=== PATIENT | male | born 1930 | race Caucasian/White ===

== ENCOUNTER 2018-01-02 08:47 | Emergency (ER) | payer OTHER ==
[2018-01-02 09:41] LABS: Urine Blood TRACE (NEG); Urine Glucose NEGATIVE (NEG); Urine Protein NEGATIVE (NEG); Urine Specific Gravity 1.025 (1.005-1.030); Urine pH 6.5 (5.0-7.0)
[2018-01-02 10:24] LABS: Urine RBC <5 /HPF (NONE SEEN)
[2018-01-02 10:25] LABS: Urine Bacteria NONE SEEN /HPF (NONE SEEN); Urine Culture Reflex Order NOT NEEDED
[2018-01-02] MEDS ORDERED: NA CHLORIDE 0.9% 1,000 ML ONE (10:25)
[2018-01-02 10:26] LABS: Urine Mucus LIGHT /HPF (NONE SEEN)
[2018-01-02 10:34] LABS: Absolute Lymphocytes (CBC) 1.3 K/uL (0.7-4.9); Absolute Monocytes 0.6 K/uL (0.1-1.3); Basophils % 0.5 % (0-1.3); Eosinophils % 0.1 % (0-4.4); Hematocrit 44.9 % (39.6-49.0); Lymphocytes % 13.1 % (15.3-44.8); MCH 28.1 pg (27.0-35.0); MCV 86.4 fL (80-100); MPV 9.9 fL (7.6-11.3); Monocytes % 5.6 % (3.3-12.3)
[2018-01-02 10:46] LABS: Potassium 4.8 mEq/L (3.6-5.0)
--- NOTE | 2018-01-02 10:50 | ER ---
Nurse's Notes [facility] Name: Darvin Watson Age: 87 yrs Sex: Male : 1930 Arrival Date: 01/02/2018 Time: 08:48 Bed 13 Private MD: Diagnosis: Malaise and fatigue;Anorexia;Adjustment disorder with depressed mood Presentation: 01/02 09:05 Presenting complaint: Child states: "Hes nauseated every morning and he doesn't want to lk1 eat. He was in the hospital 4 days for it recently and they didn't find a problem. He lost his in Oct and just moved here, but this has been going on for years.". Transition of care: patient was not received from another setting of care. Onset of symptoms is unknown. Care prior to arrival: None. 09:05 Method Of Arrival: Ambulatory lk1 09:05 Acuity: VENTURA 3 lk1 Triage Assessment: 09:08 General: Appears in no apparent distress. Behavior is calm, cooperative, appropriate lk1 for age. Pain: Denies pain. GI: Reports nausea. Historical: - Allergies: 09:07 No Known Allergies; lk1 - Home Meds: 09:11 morphine 60 mg Oral TbER 1 tab every 8 hours for Chronic Pain [Active]; mirtazapine 15 lk1 mg Oral TbDL 1 tab once daily for Major Depressive Disorder [Active]; gabapentin 300 mg oral cap 1 cap four times a day for Neuropathic Pain [Active]; ondansetron HCl 4 mg Oral tab 1 tabs every 8 hours [Active]; omeprazole 20 mg Oral cpDR 2 caps 3 times per day [Active]; clopidogrel 75 mg oral tab 1 tab once daily [Active]; - PMHx: 09:07 holes in stomach; Chronic pain; High Cholesterol; Depression; lk1 - PSHx: 09:07 Knee surgery; shoulder surgery; back surgery multiple; CABG; lk1 - Immunization history:: Adult Immunizations up to date. - Social history:: Smoking status: Patient/guardian denies using tobacco. Screenin:26 Abuse screen: Denies threats or abuse. Denies injuries from another. Nutritional iw screening: No deficits noted. Tuberculosis screening: No symptoms or risk factors identified. Fall Risk IV access (20 points). Assessment: 09:15 General: Appears in no apparent distress. comfortable, slender, well groomed, Behavior ph is calm, cooperative, appropriate for age, Denies fever, feeling ill. Pain: Denies pain. Neuro: Level of Consciousness is awake, alert, obeys commands, Oriented to person, place, time, situation, Denies weakness dizziness. Cardiovascular: Denies chest pain, lightheadedness, shortness of breath, Capillary refill < 3 seconds Patient's skin is warm and dry. Respiratory: Airway is patent Respiratory effort is even, unlabored. GI: Reports nausea, Patient currently denies abdominal pain, diarrhea, vomiting, Parent/caregiver reports the patient having anorexia. Derm: Skin is intact, Skin is pink, warm \\T\\ dry. Musculoskeletal: Circulation, motion, and sensation intact. Range of motion: intact in all extremities. 10:30 Reassessment: Patient appears in no apparent distress at this time. Patient and/or ph family updated on plan of care and expected duration. Pain level reassessed. Patient is alert, oriented x 3, equal unlabored respirations, skin warm/dry/pink. Awaiting lab results, daughter at bedside. 11:26 Reassessment: Patient appears in no apparent distress at this time. Patient and/or iw family updated on plan of care and expected duration. Pain level reassessed. Patient is alert, oriented x 3, equal unlabored respirations, skin warm/dry/pink. Patient states feeling better. Patient states symptoms have improved. Vital Signs: 09:08 BP 120 / 88; Pulse 86; Resp 15; Temp 97.2(TE); Pulse Ox 98% on R/A; Height 5 ft. 11 in. lk1 (180.34 cm) (R); Pain 0/10; 10:30 BP 128 / 78; Pulse 76; Resp 18; Pulse Ox 98% on R/A; ph 11:26 BP 132 / 87; Pulse 74; Resp 16; Pulse Ox 100% on R/A; Pain 0/10; iw ED Course: 08:48 Patient arrived in ED. as 08:49 [facility]vina Colón [facility]C [facility] snw 08:49 Herb Cain MD is Attending Physician. snw 09:01 Gladis Suero, AMY is Primary Nurse. ph 09:06 Triage completed. lk1 09:08 Arm band placed on right wrist. lk1 11:26 Patient has correct armband on for positive identification. iw 11:26 No provider procedures requiring assistance completed. IV discontinued, intact, iw bleeding controlled, No redness/swelling at site. Pressure dressing applied. Administered Medications: 10:39 Drug: NS 0.9% 1000 ml Route: IV; Rate: 125 ml/hr; Site: right antecubital; ph 11:26 Follow up: IV Status: Order to discontinue infusion iw 11:26 Not Given (Patient Refused): Phenergan 6.25 mg IVP once iw Outcome: 10:49 Discharge ordered by . chuck 11:26 Discharged to home ambulatory, with family. iw 11:26 Condition: good 11:26 Discharge instructions given to patient, family, Instructed on discharge instructions, follow up and referral plans. medication usage, Demonstrated understanding of instructions, follow-up care, medications, Prescriptions given X 1. 11:28 Patient left the ED. iw Signatures: Melvina Colón, HOME DAY CARE PROVIDER-C HOME DAY CARE PROVIDER-CsnStacey Boo Irene, RN RN Gladis Suero RN RN Debbie Jovel, AMY RN lk1
--- NOTE | 2018-01-02 10:50 | EDPHYS ---
Physician Documentation [facility] Name: Darvin Watson Age: 87 yrs Sex: Male : 1930 Arrival Date: 01/02/2018 Time: 08:48 Bed 13 Private MD: ED Physician Herb Cain HPI: 01/02 09:10 This 87 yrs old Male presents to ER via Ambulatory with complaints of snw Decreased Appetite. 09:10 Onset: The symptoms/episode began/occurred the s/s have occurred over several years but snw worsened over the past months. Associated signs and symptoms: Pertinent positives: nausea. Modifying factors: The patient symptoms are alleviated by nothing. The patient has experienced similar episodes in the past, chronically. The patient has not recently seen a physician, recent admission in [place] x 4 days for similar s/s, negative workup per report.. Historical: - Allergies: 09:07 No Known Allergies; lk1 - Home Meds: 09:11 morphine 60 mg Oral TbER 1 tab every 8 hours for Chronic Pain [Active]; mirtazapine 15 lk1 mg Oral TbDL 1 tab once daily for Major Depressive Disorder [Active]; gabapentin 300 mg oral cap 1 cap four times a day for Neuropathic Pain [Active]; ondansetron HCl 4 mg Oral tab 1 tabs every 8 hours [Active]; omeprazole 20 mg Oral cpDR 2 caps 3 times per day [Active]; clopidogrel 75 mg oral tab 1 tab once daily [Active]; - PMHx: 09:07 holes in stomach; Chronic pain; High Cholesterol; Depression; lk1 - PSHx: 09:07 Knee surgery; shoulder surgery; back surgery multiple; CABG; lk1 - Immunization history:: Adult Immunizations up to date. - Social history:: Smoking status: Patient/guardian denies using tobacco. ROS: 09:08 Eyes: Negative for injury, pain, redness, and discharge, ENT: Negative for injury, snw pain, and discharge, Neck: Negative for injury, pain, and swelling, Cardiovascular: Negative for chest pain, palpitations, and edema, Respiratory: Negative for shortness of breath, cough, wheezing, and pleuritic chest pain. 09:08 Back: Negative for injury and pain, : Negative for injury, bleeding, discharge, and swelling, MS/Extremity: Negative for injury and deformity, Skin: Negative for injury, rash, and discoloration, Neuro: Negative for headache, weakness, numbness, tingling, and seizure. 09:08 Constitutional: Positive for malaise, poor PO intake, nausea. 09:08 Abdomen/GI: Positive for nausea, anorexia. 09:08 Psych: Positive for depression. Exam: 09:07 Constitutional: This is a well developed, well nourished patient who is awake, alert, snw and in no acute distress. Head/Face: Normocephalic, atraumatic. Eyes: Pupils equal round and reactive to light, extra-ocular motions intact. Lids and lashes normal. Conjunctiva and sclera are non-icteric and not injected. Cornea within normal limits. Periorbital areas with no swelling, redness, or edema. ENT: Nares patent. No nasal discharge, no septal abnormalities noted. Tympanic membranes are normal and external auditory canals are clear. Oropharynx with no redness, swelling, or masses, exudates, or evidence of obstruction, uvula midline. Mucous membranes moist. Neck: Trachea midline, no thyromegaly or masses palpated, and no cervical lymphadenopathy. Supple, full range of motion without nuchal rigidity, or vertebral point tenderness. No Meningismus. Chest/axilla: Normal chest wall appearance and motion. Nontender with no deformity. No lesions are appreciated. Cardiovascular: Regular rate and rhythm with a normal S1 and S2. No gallops, murmurs, or rubs. Normal PMI, no JVD. No pulse deficits. Respiratory: Lungs have equal breath sounds bilaterally, clear to auscultation and percussion. No rales, rhonchi or wheezes noted. No increased work of breathing, no retractions or nasal flaring. Abdomen/GI: Soft, non-tender, with normal bowel sounds. No distension or tympany. No guarding or rebound. No evidence of tenderness throughout. Back: No spinal tenderness. No costovertebral tenderness. Full range of motion. Skin: Warm, dry with normal turgor. Normal color with no rashes, no lesions, and no evidence of cellulitis. MS/ Extremity: Pulses equal, no cyanosis. Neurovascular intact. Full, normal range of motion. Neuro: Awake and alert, GCS 15, oriented to person, place, time, and situation. Cranial nerves II-XII grossly intact. Motor strength 5/5 in all extremities. Sensory grossly intact. Cerebellar exam normal. Normal gait. 09:07 Psych: Behavior/mood is depressed, Affect is calm, Oriented to person, place, time, Patient has no thoughts/intents to harm self or others. Spouse in Oct 2017, Pt's Daughter went and picked him up 2 weeks ago and moved him to [place] from [place].. Vital Signs: 09:08 BP 120 / 88; Pulse 86; Resp 15; Temp 97.2(TE); Pulse Ox 98% on R/A; Height 5 ft. 11 in. lk1 (180.34 cm) (R); Pain 0/10; 10:30 BP 128 / 78; Pulse 76; Resp 18; Pulse Ox 98% on R/A; ph 11:26 BP 132 / 87; Pulse 74; Resp 16; Pulse Ox 100% on R/A; Pain 0/10; iw MDM: 08:59 Patient medically screened. snw 10:50 Data reviewed: vital signs, nurses notes. Data interpreted: Pulse oximetry: on room air snw is 98 %. Interpretation: normal. Counseling: I had a detailed discussion with the patient and/or guardian regarding: the historical points, exam findings, and any diagnostic results supporting the discharge/admit diagnosis, the presence of at least one elevated blood pressure reading (>120/80) during this emergency department visit, lab results, the need for outpatient follow up, to return to the emergency department if symptoms worsen or persist or if there are any questions or concerns that arise at home. Special discussion: Based on the history and exam findings, there is no indication for further emergent testing or inpatient evaluation. I discussed with the patient/guardian the need to see the primary care provider for further evaluation of the symptoms. I discussed with the patient/guardian the need to see the psychiatrist for further evaluation of the symptoms. 01/02 08:53 Order name: Urine Culture snw 01/02 08:53 Order name: Urine Microscopic Only; Complete Time: 10:27 snw 01/02 09:18 Order name: CBC with Diff; Complete Time: 10:47 snw 01/02 09:18 Order name: Chem 7; Complete Time: 10:47 snw 01/02 09:18 Order name: Blood Culture* snw 01/02 09:25 Order name: Urine Dipstick--Ancillary (enter results); Complete Time: 09:43 jw5 01/02 08:53 Order name: Urine Dipstick-Ancillary (obtain specimen); Complete Time: 09:23 snw Administered Medications: 10:39 Drug: NS 0.9% 1000 ml Route: IV; Rate: 125 ml/hr; Site: right antecubital; ph 11:26 Follow up: IV Status: Order to discontinue infusion iw 11:26 Not Given (Patient Refused): Phenergan 6.25 mg IVP once iw Disposition: 01/03 07:50 Co-signature as Attending Physician, Herb Cain MD Available for consultation at ps1 all times. . Disposition: 01/02/18 10:49 Discharged to Home. Impression: Malaise and fatigue, Anorexia, Adjustment disorder with depressed mood. - Condition is Stable. - Discharge Instructions: Adjustment Disorder, Nausea, Adult, Fatigue, Rehydration, Elderly. - Prescriptions for Zofran 4 mg Oral Tablet - take 1 tablet by ORAL route every 12 hours As needed; 20 tablet. - Medication Reconciliation Form, Thank You Letter, Antibiotic Education, Prescription Opioid Use form. - Follow up: Private Physician; When: 1 week; Reason: Recheck today's complaints, Continuance of care, Re-evaluation by your physician. Follow up: Emergency Department; When: As needed; Reason: Worsening of condition. Signatures: Dispatcher [employer] EDMA Melvina Colón, TAMIKO-C PIECE MEAT TRIMMER-Csnw Marzena Mari, AMY REYES iw Gladis Suero RN Debbie Sandoval ph, RN RN lk1 Herb Cain MD MD ps1
[2018-01-02] MEDS ORDERED: PROMETHAZINE 25 MG/ML VIAL ONE (11:04)
== END 2018-01-02 11:28 | disposition home or self-care (01) ==
LOC: ER 08:47
DX: F43.21 Adjustment disorder with depressed mood (principal); R53.81 Other malaise; R53.83 Other fatigue; E78.00 Pure hypercholesterolemia, unspecified; F32.9 Major depressive disorder, single episode, unspecified; Z95.1 Presence of aortocoronary bypass graft
CPT/HCPCS: 36415; 80048; 85025; 87040 ×2; 87086; 87088; 96360; 99283; J7030; 81003; 81015; J2550

== ENCOUNTER 2019-07-10 14:31 | Observation (INO) | payer OTHER ==
[2019-07-10 15:01] LABS: Absolute Lymphocytes (CBC) 2.8 K/uL (0.7-4.9); Basophils % 0.7 % (0-1.3); Hematocrit 45.3 % (39.6-49.0); Lymphocytes % 29.6 % (15.3-44.8); MPV 10.2 fL (7.6-11.3); RBC Red Blood Cell Count 5.02 M/uL (4.33-5.43)
[2019-07-10 15:04] LABS: Protime INR 0.94
[2019-07-10 15:28] LABS: Potassium 3.8 mmol/L (3.5-5.1); Troponin (Emerg Dept Use Only) 0.03 ng/mL (0.0-0.045)
[2019-07-10 15:40] LABS: Blood Morphology Comment NOT SEEN (NOT SEEN); Platelet Estimate ADEQ; Platelets, Giant PRESENT; Urine White Blood Cell Casts OK
--- NOTE | 2019-07-10 15:49 | ER ---
Nurse's Notes [facility] Name: Darvin Watson Age: 89 yrs Sex: Male : 1930 Arrival Date: 07/10/2019 Time: 14:33 Bed 3 Private MD: Diagnosis: Chest pain, unspecified;Angina pectoris, unspecified Presentation: 07/10 14:41 Presenting complaint: Patient states: chest tightness with nausea and dizziness x 30 la1 mins. Transition of care: patient was not received from another setting of care. Onset of symptoms was July 10, 2019. Risk Assessment: Do you want to hurt yourself or someone else? Patient reports no desire to harm self or others. Initial Sepsis Screen: Does the patient meet any 2 criteria? No. Patient's initial sepsis screen is negative. Does the patient have a suspected source of infection? No. Patient's initial sepsis screen is negative. Care prior to arrival: None. 14:41 Method Of Arrival: Wheelchair la1 14:41 Acuity: VENTURA 2 la1 Historical: - Allergies: 14:42 No Known Allergies; la1 - Home Meds: 16:11 gabapentin 300 mg Oral cap 1 cap 3 times per day for Neuropathic Pain [Active]; jl7 clopidogrel 75 mg Oral tab 1 tab once daily [Active]; [place] 10-325 mg Oral tab 1 tab every 4 hours [Active]; omeprazole 20 mg Oral cpDR 2 caps 3 times per day [Active]; - PMHx: 14:42 Chronic pain; Depression; High Cholesterol; holes in stomach; la1 - PSHx: 16:11 Knee surgery; CABG; back surgery multiple; shoulder surgery; jl7 - Immunization history:: Adult Immunizations up to date. - Social history:: Smoking status: Patient/guardian denies using tobacco. - Ebola Screening: : No symptoms or risks identified at this time. - Family history:: not pertinent. - Hospitalizations: : No recent hospitalization is reported. Screenin:45 Abuse screen: Denies threats or abuse. Denies injuries from another. Nutritional jl7 screening: No deficits noted. Tuberculosis screening: No symptoms or risk factors identified. Fall Risk IV access (20 points). Total Wright Fall Scale indicates No Risk (0-24 pts). Assessment: 14:45 General: Appears in no apparent distress. uncomfortable, Behavior is calm, cooperative, jl7 appropriate for age. Pain: Complains of pain in chest Pain does not radiate. Pain currently is 7 out of 10 on a pain scale. Quality of pain is described as squeezing, Pain began Is continuous. Neuro: Level of Consciousness is awake, alert, obeys commands, Oriented to person, place, time, situation. Cardiovascular: Reports chest pain, Denies nausea, shortness of breath, Heart tones present Patient's skin is warm and dry. Respiratory: Airway is patent Respiratory effort is even, unlabored, Respiratory pattern is regular, symmetrical. GI: No signs and/or symptoms were reported involving the gastrointestinal system. : No signs and/or symptoms were reported regarding the genitourinary system. EENT: No signs and/or symptoms were reported regarding the EENT system. Derm: Skin is pink, warm \T\ dry. Musculoskeletal: No signs and/or symptoms reported regarding the musculoskeletal system. 16:00 Reassessment: Patient appears in no apparent distress at this time. No changes from jl7 previously documented assessment. Patient and/or family updated on plan of care and expected duration. Pain level reassessed. Patient is alert, oriented x 3, equal unlabored respirations, skin warm/dry/pink. Vital Signs: 14:42 Weight 72.57 kg; Height 5 ft. 11 in. (180.34 cm); la1 14:45 BP 184 / 91; Pulse 70; Resp 19 S; Pulse Ox 97% on R/A; Pain 7/10; jl7 16:00 BP 178 / 85; Pulse 63; Resp 17 S; Temp 98.4(TE); Pulse Ox 96% on R/A; jl7 16:58 BP 137 / 80; Pulse 60; Resp 14 S; Pulse Ox 99% on R/A; jl7 14:42 Body Mass Index 22.32 (72.57 kg, 180.34 cm) la1 ED Course: 14:33 Patient arrived in ED. as 14:39 Rocío Morrow, AMY is Primary Nurse. jl7 14:40 Sivakumar Horn MD is Attending Physician. rn 14:41 Triage completed. la1 14:42 Arm band placed on right wrist. la1 14:45 Patient has correct armband on for positive identification. Placed in gown. Bed in low jl7 position. Call light in reach. Side rails up X 1. personnel monitor on. Pulse ox on. NIBP on. 14:45 Initial lab(s) drawn, by me, sent to lab. Inserted saline lock: 20 gauge in right jl7 forearm, using aseptic technique. Blood collected. 15:02 XRAY Chest (1 view) In Process Unspecified. EDMS 15:06 EKG done, by fiberglass technician. reviewed by Sivakumar Horn MD. 3 15:48 Concepcion Hansen MD is Hospitalizing Provider. rn 16:00 Patient maintains SpO2 saturation greater than 95% on room air. jl7 16:57 No provider procedures requiring assistance completed. Patient admitted, IV remains in jl7 place. intact, No redness/swelling at site. Administered Medications: 16:00 Drug: Nitroglycerin 0.4 mg Route: Sublingual; [facility] 16:59 Follow up: Response: No adverse reaction [facility] 16:00 Drug: Aspirin Chewable Tablet 324 mg Route: PO; [facility] 16:59 Follow up: Response: No adverse reaction [facility] Outcome: 15:48 Decision to Hospitalize by Provider. rn 16:57 Admitted to Tele accompanied by tech, family with patient, via wheelchair, room 205, [facility] with chart, Report called to AMY Cervantes 16:57 Condition: stable 16:57 Discharge instructions given to patient, family, Instructed on the need for admit, Demonstrated understanding of instructions. 17:03 Patient left the ED. [facility] Signatures: Dispatcher [employer] Stacey Weller Roman, MD MD rn Attema, Lee, RN RN la1 Rocío Morrow RN RN jl7 Azucena Hunt 3
--- NOTE | 2019-07-10 15:49 | EDPHYS ---
Physician Documentation [facility] Name: Darvin Watson Age: 89 yrs Sex: Male : 1930 Arrival Date: 07/10/2019 Time: 14:33 Bed 3 Private MD: ED Physician Sivakumar Horn HPI: 07/10 15:03 This 89 yrs old Male presents to ER via Wheelchair with complaints of Chest rn Pain. 15:03 The patient or guardian reports chest pain that is located primarily in the substernal rn area. Onset: 3 day(s) ago. The pain radiates to the left arm, the left shoulder. The chest pain is described as squeezing. Duration: The patient or guardian reports multiple episodes, that are intermittent. Modifying factors: The symptoms are alleviated by rest, the symptoms are aggravated by activity, exertion. Severity of pain: At its worst the pain was moderate in the emergency department the pain has improved. The patient has experienced similar episodes in the past. The patient has not recently seen a physician. REports last few days chest tightness upon exertion, resolves with rest, happening more frequently, but not at rest. No fever/cough/sob. No abd pain. Has had cardiac bypass in 90s, and stents since then, last cath 6 years ago. No vomiting, + diaphoresis. . Historical: - Allergies: 14:42 No Known Allergies; la1 - Home Meds: 16:11 gabapentin 300 mg Oral cap 1 cap 3 times per day for Neuropathic Pain [Active]; jl7 clopidogrel 75 mg Oral tab 1 tab once daily [Active]; [place] 10-325 mg Oral tab 1 tab every 4 hours [Active]; omeprazole 20 mg Oral cpDR 2 caps 3 times per day [Active]; - PMHx: 14:42 Chronic pain; Depression; High Cholesterol; holes in stomach; la1 - PSHx: 16:11 Knee surgery; CABG; back surgery multiple; shoulder surgery; jl7 - Immunization history:: Adult Immunizations up to date. - Social history:: Smoking status: Patient/guardian denies using tobacco. - Ebola Screening: : No symptoms or risks identified at this time. - Family history:: not pertinent. - Hospitalizations: : No recent hospitalization is reported. ROS: 15:03 Constitutional: Negative for fever, chills, and weight loss, Eyes: Negative for injury, rn pain, redness, and discharge, Neck: Negative for injury, pain, and swelling, Cardiovascular: + chest pain Respiratory: Negative for shortness of breath, cough, wheezing, and pleuritic chest pain, Abdomen/GI: Negative for abdominal pain, nausea, vomiting, diarrhea, and constipation, MS/Extremity: Negative for injury and deformity, Skin: Negative for injury, rash, and discoloration, Neuro: Negative for headache, weakness, numbness, tingling, and seizure. Exam: 15:09 Constitutional: This is a well developed, well nourished patient who is awake, alert, rn and in no acute distress. Head/Face: Normocephalic, atraumatic. ENT: MMM Cardiovascular: Regular rate and rhythm. No pulse deficits. Respiratory: No increased work of breathing, no retractions or nasal flaring. Abdomen/GI: soft, non-tender MS/ Extremity: Pulses equal, no cyanosis. Neurovascular intact. Full, normal range of motion. Equal circumference. Neuro: Awake and alert, GCS 15, oriented to person, place, time, and situation. Cranial nerves II-XII grossly intact. Motor strength 5/5 in all extremities. Sensory grossly intact. 15:41 ECG was reviewed by the Attending Physician. rn Vital Signs: 14:42 Weight 72.57 kg; Height 5 ft. 11 in. (180.34 cm); la1 14:45 BP 184 / 91; Pulse 70; Resp 19 S; Pulse Ox 97% on R/A; Pain 7/10; jl7 16:00 BP 178 / 85; Pulse 63; Resp 17 S; Temp 98.4(TE); Pulse Ox 96% on R/A; jl7 16:58 BP 137 / 80; Pulse 60; Resp 14 S; Pulse Ox 99% on R/A; jl7 14:42 Body Mass Index 22.32 (72.57 kg, 180.34 cm) la1 MDM: 14:40 Patient medically screened. rn 15:46 Differential diagnosis: acute myocardial infarction, coronary artery disease pleurisy, rn pneumonia, pneumothorax, stable angina, unstable angina. HEART Score: History: Highly Suspicious (2), ECG: Non specific repolarization disturbance / LBTB / PM (1), Age: > or = 65 years (2), Risk Factors: > or = 3 Risk factors for atherosclerotic disease (2), [Hypercholesterolemia] [Hypertension] [+ Family HX] Troponin: < or = 1 x Normal Limit (0). The patient was given aspirin in the Emergency Department. Data reviewed: vital signs, nurses notes, lab test result(s), EKG, radiologic studies, plain films. Counseling: I had a detailed discussion with the patient and/or guardian regarding: the historical points, exam findings, and any diagnostic results supporting the discharge/admit diagnosis, lab results, radiology results, the need for further work-up and treatment in the hospital. Response to treatment: the patient's symptoms have mildly improved after treatment, and as a result, I will admit patient. Admission orders: after a detailed discussion of the patient's condition and case, the admit orders are written by me. ED course: Pt with normal trop, nonspecific ECG, will admit for cardiac bird out given highly suspicious story of increasingly frequent chest pain with exertion and known CAD. . 07/10 14:45 Order name: Basic Metabolic Panel; Complete Time: 15:41 07/10 14:45 Order name: CBC with Diff; Complete Time: 15:41 07/10 14:45 Order name: Magnesium; Complete Time: 15:41 07/10 14:45 Order name: NT PRO-BNP; Complete Time: 15:41 rn 07/10 14:45 Order name: PT-INR; Complete Time: 15:41 07/10 14:45 Order name: Troponin (emerg Dept Use Only); Complete Time: 15:41 07/10 14:45 Order name: XRAY Chest (1 view) 07/10 15:40 Order name: CBC Smear Scan; Complete Time: 15:41 EDAR 07/10 16:21 Order name: Troponin I EDAR 07/10 16:21 Order name: Troponin I EDAR 07/10 16:21 Order name: Troponin I [facility] 07/10 16:21 Order name: Echo with Doppler [facility] 07/10 14:45 Order name: EKG; Complete Time: 14:45 rn 07/10 14:45 Order name: Cardiac monitoring; Complete Time: 14:54 rn 07/10 14:45 Order name: EKG - Nurse/Tech; Complete Time: 14:53 rn 07/10 14:45 Order name: IV Saline Lock; Complete Time: 14:54 rn 07/10 14:45 Order name: Labs collected and sent; Complete Time: 14:54 rn 07/10 14:45 Order name: O2 Per Protocol; Complete Time: 14:54 rn 07/10 14:45 Order name: O2 Sat Monitoring; Complete Time: 14:54 rn 07/10 16:19 Order name: CONS Physician Consult EDMS EC:41 Rate is 72 beats/min. Rhythm is regular. Left axis deviation noted. QRS is positive in rn lead I and negative in lead aVF. OR interval is normal. QRS interval is prolonged at 150 msec. QT interval is normal. T waves are Inverted in leads V1, V2. No ST changes noted. Clinical impression: NSR w/ Non-specific ST/T Changes and RBBB. Interpreted by me. Reviewed by me. Administered Medications: 16:00 Drug: Nitroglycerin 0.4 mg Route: Sublingual; [facility] 16:59 Follow up: Response: No adverse reaction [facility] 16:00 Drug: Aspirin Chewable Tablet 324 mg Route: PO; 7 16:59 Follow up: Response: No adverse reaction [facility] Disposition: 07/10/19 15:48 Hospitalization ordered by Concepcion Hansen for Observation. Preliminary diagnosis are Chest pain, unspecified, Angina pectoris, unspecified. - Bed requested for Telemetry/MedSurg (observation). - Status is Observation. jl7 - Condition is Stable. - Problem is an ongoing problem. - Symptoms have improved. UTI on Admission? No Signatures: Dispatcher [employer] EDAR Sivakumar Horn MD MD rn Attema, Lee RN RN la1 Rocío Morrow RN RN jl7 Donaldo Guillen, RN RN ja1 Corrections: (The following items were deleted from the chart) 16:47 15:48 Hospitalization Ordered by Concepcion Hansen MD for Observation. Preliminary ja1 diagnosis is Chest pain, unspecified; Angina pectoris, unspecified. Bed requested for Telemetry/MedSurg (observation). Status is Observation. Condition is Stable. Problem is an ongoing problem. Symptoms have improved. UTI on Admission? No. rn 17:03 16:47 07/10/2019 15:48 Hospitalization Ordered by Concepcion Hansen MD for Observation. jl7 Preliminary diagnosis is Chest pain, unspecified; Angina pectoris, unspecified. Bed requested for Telemetry/MedSurg (observation). Status is Observation. Condition is Stable. Problem is an ongoing problem. Symptoms have improved. UTI on Admission? No. ja1
[2019-07-10] MEDS ORDERED: NITROGLYCERIN 0.4 MG/TAB SL ONE (15:55)
[2019-07-10] MEDS ORDERED: ASPIRIN 81 MG CHEWABLE TABLET ONE (15:55)
--- NOTE | 2019-07-10 16:34 | RAD REPORT ---
EXAM DESCRIPTION: Alecia Single View07/10/2019 3:00 pm CLINICAL HISTORY: Chest pain COMPARISON: None FINDINGS: A 6 millimeter nodular opacity overlies the mid lateral right lung. Additional vague 6 mil limeter nodular opacity overlies the right lung base Left lung appears clear The heart is mildly enlarged. Postsurgical changes involve the chest. IMPRESSION: Two subcentimeter nodular opacities which overlie the right lung may represent pulmonary nodules. A follow-up chest film in 3 months is recommended for re-evaluation
--- NOTE | 2019-07-10 17:02 | P.HP ---
Certification for Inpatient Patient admitted to: Observation With expected LOS: <2 Midnights Patient will require the following post-hospital care: None Practitioner: I am a practitioner with admitting privileges, knowledge of patient current condition, hospital course, and medical plan of care. Services: Services provided to patient in accordance with Admission requirements found in Title 42 Section 412.3 of the Code of Federal Regulations Patient History Date of Service: 07/10/19 Primary Care Provider: Dr Hansen Reason for admission: Chest Pain History of Present Illness: 89 y/o M with H/o HTN, HLP, CAD with CABG x5 and stent placement in 1999 who presented to the ED with complains of chest tightness that started about 10 days ago. Tightness has been intermittent in nature and has been progressively getting worse. Chest tightness is dull in nature and it radiates to the left shoulder and arm. Denies having any fever, chills, Nausea, Vomitting at this time. Pain gets worse with work and better with nitro. 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 Allergies No Known Allergies Allergy (Verified 07/10/19 17:17) Home medications list reviewed: Yes - Past Medical/Surgical History Has patient received pneumonia vaccine in the past: No Diabetic: Yes -: HTN -: HLP -: CAD -: CABG x 5 -: CABG x 5 -: Stent Placement -: Lower back reconstruction - Family History Family History: Reviewed- Non-Contributory - Social History Smoking Status: Former smoker Counseled patient to stop smoking for: more than 10 minutes Smoking therapy provided: Yes Patient receptive to therapy: Yes Alcohol use: No CD- Drugs: No Caffeine use: No Place of Residence: Home Review of Systems 10-point ROS is otherwise unremarkable Physical Examination - Physical Exam General: Alert, In no apparent distress HEENT: Atraumatic, PERRLA, Mucous membr. moist/pink, EOMI, Sclerae nonicteric Neck: Supple, 2+ carotid pulse no bruit, No LAD, Without JVD or thyroid abnormality Respiratory: Clear to auscultation bilaterally, Normal air movement Cardiovascular: Regular rate/rhythm, Normal S1 S2 Gastrointestinal: Normal bowel sounds, No tenderness Musculoskeletal: No tenderness Integumentary: No rashes Neurological: Normal gait, Normal speech, Normal strength at 5/5 x4 extr, Normal tone, Normal affect Lymphatics: No axilla or inguinal lymphadenopathy - Studies Laboratory Data (last 24 hrs) 07/10/19 14:50: PT 11.1, INR 0.94 07/10/19 14:50: WBC 9.5, Hgb 15.2, Hct 45.3, Plt Count 223 07/10/19 14:50: Sodium 141, Potassium 3.8, BUN 12, Creatinine 1.09, Glucose 108 H, Magnesium 2.0 Assessment and Plan - Problems (Diagnosis) (1) Chest pain Current Visit: Yes Status: Acute Plan: Chest pain with h/o CAD and CABG -Cardiology consulted. awaiting Reccs -Will trend Troponinx2 and get ECHO -Start on ACS medication Qualifiers: Chest pain type: unspecified Qualified Code(s): R07.9 - Chest pain, unspecified (2) HTN (hypertension) Current Visit: Yes Status: Chronic Plan: Restart home medication Qualifiers: Hypertension type: essential hypertension Qualified Code(s): I10 - Essential (primary) hypertension (3) Hyperlipidemia Current Visit: Yes Status: Chronic Plan: Restart home medication Qualifiers: Hyperlipidemia type: mixed hyperlipidemia Qualified Code(s): E78.2 - Mixed hyperlipidemia - Plan Admit for ACS r/o Discharge Plan: Home Plan to discharge in: Greater than 2 days - Advance Directives Does patient have a Living Will: No Does patient have a Durable POA for Healthcare: No - Code Status/Comfort Care Code Status Assessed: Yes Critical Care: No
--- NOTE | 2019-07-10 17:31 | EKG ---
Test Date: 2019-07-10 Test Time: 14:46:01 Hop Trainer: JACOB MEASUREMENT RESULTS: Intervals: Rate: 72 VT: 126 QRSD: 150 QT: 420 QTc: 459 [place]: P: -24 VT: 126 QRS: -80 T: 31 INTERPRETIVE STATEMENTS: Normal sinus rhythm Right bundle branch block Left anterior fascicular block Bifascicular block Abnormal ECG No previous ECG available for comparison Electronically Signed On 07-10-19 17:30:30 CDT by Manpreet Rivera
[2019-07-10 17:36] VITALS: BMI 23.1
[2019-07-10] MEDS: GABAPENTIN 300 MG CAP PO SCH (20:29)
[2019-07-10] MEDS: HYDROCODONE/APAP 10/325 TAB PO PRN (20:30)
[2019-07-10] MEDS ORDERED: GABAPENTIN 300 MG CAP PO SCH (21:00)
[2019-07-10] MEDS ORDERED: ATORVASTATIN 40 MG TAB PO SCH (21:00)
[2019-07-10 21:11] LABS: Urine Appearance CLEAR; Urine Bilirubin NEGATIVE (NEG); Urine Blood NEGATIVE (NEG); Urine Color YELLOW; Urine Glucose NEGATIVE (NEG); Urine Protein NEGATIVE (NEG); Urine Specific Gravity 1.015 (1.005-1.030); Urine Urobilinogen 0.2 mg/dL (0.2-1.0)
[2019-07-10 21:12] LABS: Urine Microscopic Reflex NO UMIC
[2019-07-11 04:07] LABS: Absolute Lymphocytes (CBC) 2.5 K/uL (0.7-4.9); Albumin 3.2 g/dL (3.4-5.0); Basophils % 1.1 % (0-1.3); Bilirubin Total 0.5 mg/dL (0.2-1.0); Hematocrit 40.9 % (39.6-49.0); Lymphocytes % 41.7 % (15.3-44.8); MPV 10.5 fL (7.6-11.3); Phosphorus 2.7 mg/dL (2.5-4.9); Potassium 3.9 mmol/L (3.5-5.1); Protein, Total 5.8 g/dL (6.4-8.2); RBC Red Blood Cell Count 4.51 M/uL (4.33-5.43)
[2019-07-11] MEDS ORDERED: METOPROLOL XL 25 MG TAB PO SCH (06:00)
[2019-07-11] MEDS ORDERED: PANTOPRAZOLE 40MG TABLET PO SCH (07:30)
[2019-07-11] MEDS: HYDROCODONE/APAP 10/325 TAB PO PRN (08:07)
[2019-07-11] MEDS: GABAPENTIN 300 MG CAP PO SCH ×2 (08:08→14:30)
[2019-07-11] MEDS ORDERED: NITROGLYCERIN 0.4 MG/TAB SL PRN (08:50)
[2019-07-11] MEDS ORDERED: OMEPRAZOLE 20 MG PO SCH (09:00)
[2019-07-11] MEDS ORDERED: ASPIRIN EC 81 MG TAB PO SCH (09:00)
[2019-07-11] MEDS ORDERED: LOSARTAN POTASSIUM 50 MG TABLET PO SCH (09:00)
[2019-07-11] MEDS ORDERED: POTASSIUM CL SA 10 MEQ TAB PO ONE (09:00)
[2019-07-11 10:22] VITALS: BP 137/75; TEMP 97.9
--- NOTE | 2019-07-11 10:22 | ECHO ---
HEIGHT: 5 ft 11 in WEIGHT: 166 lb 0 oz DATE OF STUDY: 07/11/[address]: Concepcion Hansen MD 2-DIMENSIONAL: YES M.MODE: YES DOPPLER: YES COLOR FLOW: YES TDS: NO PORTABLE: NO DEFINITY: NO BUBBLE STUDY: NO DIAGNOSIS: CHEST PAIN CARDIAC HISTORY: CATHERIZATION: YES SURGERY: YES PROSTHETIC VALVE: NO PACEMAKER: NO MEASUREMENTS (cm) DIASTOLIC (NORMALS) SYSTOLIC (NORMALS) IVSd 0.9 (0.6-1.2) LA Diam 3.0 (1.9-4.0) LVEF 73% LVIDd 5.0 (3.5-5.7) LVIDs 2.9 (2.0-3.5) %FS 42% LVPWd 1.0 (0.6-1.2) Ao Diam 3.2 (2.0-3.7) 2 DIMENSIONAL ASSESSMENT: RIGHT ATRIUM: NORMAL LEFT ATRIUM: NORMAL RIGHT VENTRICLE: NORMAL LEFT VENTRICLE: NORMAL TRICUSPID VALVE: NORMAL MITRAL VALVE: ANTERIOR LEAFLET THICKENED PULMONIC VALVE: NORMAL AORTIC VALVE: NORMAL PERICARDIAL EFFUSION: NONE AORTIC ROOT: NORMAL LEFT VENTRICULAR WALL MOTION: DOPPLER/COLOR FLOW: MILD MITRAL AND TRICUSPID REGURGITATION. NORMAL RIGHT VENTRICULAR SYSTOLIC PRESSURE. COMMENTS: NORMAL LEFT VENTRICULAR EJECTION FRACTION. THICKENED ANTERIOR MITRAL LEAFLET. MILD MITRAL AND TRICUSPID REGURGITATION. TECHNOLOGIST: Roosevelt DAMON
--- NOTE | 2019-07-11 12:09 | P.SSS ---
Patient History Date of Service: 07/11/19 Primary Care Provider: Dr Hansen Reason for admission: Chest Pain History of Present Illness: 89 y/o M with H/o HTN, HLP, CAD with CABG x5 and stent placement in 1999 who presented to the ED with complains of chest tightness that started about 10 days ago. Tightness has been intermittent in nature and has been progressively getting worse. Chest tightness is dull in nature and it radiates to the left shoulder and arm. Denies having any fever, chills, Nausea, Vomitting at this time. Pain gets worse with work and better with nitro. 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 Allergies No Known Allergies Allergy (Verified 07/10/19 17:17) Home Medications: Clopidogrel Bisulfate [Plavix*] 75 mg PO DAILY 07/10/19 Gabapentin 300 mg PO TID 07/10/19 Hydrocodone/Acetaminophen [Hydrocodone-Acetamin 10-325 mg] 1 tab PO Q4HP PRN Omeprazole 20 mg PO DAILY 07/10/19 Atorvastatin Calcium [Lipitor] 80 mg PO BEDTIME #30 tab 07/11/19 Losartan Potassium [Cozaar*] 100 mg PO DAILY #60 tablet 07/11/19 Ranolazine [Ranexa] 500 mg PO BID #60 tab.er.12h 07/11/19 - Past Medical/Surgical History Has patient received pneumonia vaccine in the past: No Diabetic: Yes -: HTN -: HLP -: CAD -: CABG x 5 -: CABG x 5 -: Stent Placement -: Lower back reconstruction - Family History Family History: Reviewed- Non-Contributory - Family History Father -: Cancer Mother -: Cancer - Social History Smoking Status: Former smoker Alcohol use: No CD- Drugs: No Caffeine use: No Place of Residence: Home Review of Systems 10-point ROS is otherwise unremarkable Physical Examination - Vital Signs Temperature: 97.9 F Blood Pressure: 137/75 Pulse: 68 Respirations: 16 Pulse Ox (%): 100 - Physical Exam General: Alert, In no apparent distress HEENT: Atraumatic, PERRLA, Mucous membr. moist/pink, EOMI, Sclerae nonicteric Neck: Supple, 2+ carotid pulse no bruit, No LAD, Without JVD or thyroid abnormality Respiratory: Clear to auscultation bilaterally, Normal air movement Cardiovascular: Regular rate/rhythm, Normal S1 S2 Gastrointestinal: Normal bowel sounds, No tenderness Musculoskeletal: No tenderness Integumentary: No rashes Neurological: Normal gait, Normal speech, Normal strength at 5/5 x4 extr, Normal tone, Normal affect Lymphatics: No axilla or inguinal lymphadenopathy - Studies Laboratory Data (last 24 hrs) 07/10/19 14:50: PT 11.1, INR 0.94 07/10/19 14:50: WBC 9.5, Hgb 15.2, Hct 45.3, Plt Count 223 07/10/19 14:50: Sodium 141, Potassium 3.8, BUN 12, Creatinine 1.09, Glucose 108 H, Magnesium 2.0 - Diagnosis (Problem(s)) (1) Chest pain Current Visit: Yes Status: Acute Plan: Chest pain with h/o CAD and CABG Now resolved. Was started on losartan, Retrovir statin, Renax up by cardiology. Echocardiogram was done with no acute findings. Patient worked with physical therapy here in the hospital did well overall. And thus was discharged home under stable condition. Qualifiers: Chest pain type: unspecified Qualified Code(s): R07.9 - Chest pain, unspecified (2) HTN (hypertension) Current Visit: Yes Status: Chronic Qualifiers: Hypertension type: essential hypertension Qualified Code(s): I10 - Essential (primary) hypertension (3) Hyperlipidemia Current Visit: Yes Status: Chronic Qualifiers: Hyperlipidemia type: mixed hyperlipidemia Qualified Code(s): E78.2 - Mixed hyperlipidemia Treatment Summary: Medical management for patient stable angina. Discharge home today she spent has resolved patient worked with physical therapy as well. - Disposition Disposition: ROUTINE DISCHARGE Condition: GOOD Diet: Regular Activity: Ad belén
[2019-07-11 12:28] VITALS: O2SAT 96
--- NOTE | 2019-07-11 12:55 | CON ---
History Of Present Illness: Mr. Watson is 89. He came to the hospital because he has tightness in his chest when he exerts himself. If he is quiet or minimally active, he does not get the pain. He has had 3 episodes of pain over the last 3 weeks to a month. He has a history of coronary heart dise ase with bypass surgery in 1996, stents in his heart in 2002, stents again in his heart around 2011. We do not have any of those records. They are all from the [facility]. He has been livin g in our area for about 3 years. His . His outpatient medications are gabapentin, c lopidogrel, hydrocodone, and omeprazole. He is not on any of the usual medicines for the patient wit h advanced heart disease. I would have expected. Since the patient has been in the hospital, he has had a normal hemoglobin, hematocrit, white blood cell count. His troponins have been 0.03, 0.05, an d 0.04. It is not diagnostic of anything. His electrocardiogram shows sinus rhythm, right bundle-br anch block, left anterior fascicular block without any infarction injury or ischemia. Physical Examination: General: He is 5 feet 11 inches, 166 pounds. Very hard of hearing. HEENT: Unremarkable. Otherwise, no carotid bruit. Lungs: Clear. No crackles or wheezes. Heart: Within normal limits. No significant murmur or rub or gallop. Abdomen: Soft. Extremities: Palpable, but diminished distal pulses. The patient does not use tobacco. He has had numerous back surgeries after an injury on the job. Impression: Mr. Watson probably is indeed having angina with his age and very complicated situation and thinking we should at least give a few days trial of medical therapy for this. I think adding a medicine to keep his blood pressure better, particularly in light of all the angina he is having. I do not think he would tolerate a beta-nery. His resting heart rate without a beta-nery is 59, so I am going to opt for using a high dose statin, Ranexa, and an angiotensin receptor nery and w e will see if we can get him stable and enough to do okay without going through another stent. His d aughter and he were both reluctant to go through a stent unless we do a trial of medical therapy hang [id number]/GABY Voice ID: [id number] Report ID: [id number]
[2019-07-11] MEDS ORDERED: ATORVASTATIN 80 MG TAB PO SCH (21:00)
--- OUTSIDE RECORDS SUMMARY | 2019-07-29 06:44 | XMS REPORT ---
:1930 Author Organization [employer] Care Team Providers Name Role Phone Tyrone Willy Provider Role Unavailable Allergies No Known Allergies Problems Problem Type Condition Code Onset Dates Condition Status Problem Hx of coronary artery bypass graft Z95.1 Active Problem Body mass index (BMI) of 22.0 to Z68.22 Active 22.9 in adult Problem Depression with anxiety F41.8 Active Problem Stented coronary artery Z95.5 Active Problem Low back pain M54.5 Active Problem Decreased appetite R63.0 Active Problem Coronary artery disease involving I25.810 Active other coronary artery bypass graft without angina pectoris Problem Other chronic pain G89.29 Active Problem GERD without esophagitis K21.9 Active Medications No Known Medications Results No Known Results Summary Purpose [employer] Submission
== END 2019-07-11 16:07 | disposition home or self-care (01) ==
LOC: ER 14:31 → ERHOLD 16:17 → 2ND 16:59
PROVIDERS: ADMIT Family Medicine; ATTEND Family Medicine
DX: R07.9 Chest pain, unspecified (principal); I10 Essential (primary) hypertension; E78.5 Hyperlipidemia, unspecified; I25.10 Atherosclerotic heart disease of native coronary artery without angina pectoris; Z95.1 Presence of aortocoronary bypass graft; Z87.891 Personal history of nicotine dependence
CPT/HCPCS: 93005; 93306; 85025 ×2; 80048; 36415; 83735 ×2; 84100; 85610; 81003; 84484 ×3; 80053; 83880; 71045; 99285; G0378 ×3